=== PATIENT | male | born 1980 | race Caucasian/White ===

== ENCOUNTER 2016-12-20 20:22 | Emergency (ER) | payer MEDICAID ==
[2016-12-20 23:57] VITALS: BP 139/91
== END 2016-12-20 23:57 | disposition home or self-care (01) ==
LOC: ED 20:22
DX: S86.811A Strain of other muscle(s) and tendon(s) at lower leg level, right leg, initial encounter (principal); X58.XXXA Exposure to other specified factors, initial encounter; Y93.01 Activity, walking, marching and hiking; Y92.89 Other specified places as the place of occurrence of the external cause; Y99.8 Other external cause status
CPT/HCPCS: J1885; Q0092